=== PATIENT | male | born 1965 | race African-American/Black ===

== ENCOUNTER 2025-02-28 11:30 | Emergency (ER) | payer OTHER ==
[2025-02-28 11:45] VITALS: BP 140/92; PULSE 98; RESP 18; TEMP 98; BMI 27.8
[2025-02-28] MEDS ORDERED: KETOROLAC TROMETHAMINE 30 MG/1 ML VIAL ONE (12:58)
[2025-02-28] MEDS: KETOROLAC TROMETHAMINE 30 MG/1 ML VIAL IM ONE (13:08)
== END 2025-02-28 13:09 | disposition home or self-care (01) ==
LOC: JERFT 11:30
PROC: 3E0233Z Introduction of Anti-inflammatory into Muscle, Percutaneous Approach (ICD-10-PCS; principal; 2025-02-28)
DX: M54.42 Lumbago with sciatica, left side (principal)
CPT/HCPCS: 96372; 99284-25